=== PATIENT | male | born 1985 | race African-American/Black ===

== ENCOUNTER 2019-02-24 05:49 | Emergency (ER) | payer MEDICAID ==
[~2019-02-24] VITALS: Ht 177.8 cm; Wt 68.0 kg
--- NOTE | 2019-02-24 05:55 | NUR ---
ED Nurse Note: Pt was brought by JUAREZ and TERESA, due to Pt was ALOC and yelling on street. Called 911 by josé miguel. Pt is awake but confused and with violent behavior. Vital signs stable at this time, waiting for orders. Pt is not on custody at this time, so, TERESA left ED.
[2019-02-24] MEDS ORDERED: Haloperidol 5mg/ml Inj IM ONE (06:00)
[2019-02-24] MEDS ORDERED: LORazepam Inj 2mg/ml 1ml IM ONE (06:00)
[2019-02-24] MEDS ORDERED: DiphenhydrAMINE 50mg/ml Inj IM ONE (06:00)
--- NOTE | 2019-02-24 06:07 | Emergency Room Report ---
History of Present Illness General Chief Complaint: Altered Mental Status Source: Patient, EMS Present Illness HPI This is an approximately 26-year-old -[place] male brought in by EMS for altered mental status bizarre behavior. He was in the street yelling so someone called 911. Patient does not have an ID on him. He does not give a name. He is acting bizarrely. He has tangential thoughts. Denies any drug use. Denies any other complaints. Unable to get any other history from him. Allergies: Coded Allergies: No Known Allergies (Unverified , 02/24/19) Patient History Past Medical History: see triage record, old chart reviewed, unable to obtain Past Surgical History: unable to obtain Family History: unable to obtain Social History: unable to obtain Immunizations: other Reviewed Nursing Documentation: PMH: Agreed; PSxH: Agreed Nursing Documentation-PMH Past Medical History Deferred: Pt Cognitively Impaired Review of Systems All Other Systems: limited - Secondary to mental sta Physical Exam Vital Signs Date Time Temp Pulse Resp B/P (MAP) Pulse Ox O2 Delivery O2 Flow Rate FiO2 02/24/19 05:47 97.5 100 19 90 Room Air vitals with hypoxia. repeat POx 98% Sp02 EP Interpretation: reviewed, normal General Appearance: alert/responsive, no apparent distress, non-toxic Head: normocephalic, atraumatic Eyes: PERRL, EOMI, other - Patient agitated ENT: oropharynx normal Neck: supple/symm/no masses Respiratory: effort normal, no rhonchi, no wheezing Cardiovascular: no murmur, gallop, rub Gastrointestinal: non-tender, no mass, non-distended, no rebound/guarding, normal bowel sounds Musculoskeletal: gait & station normal Neurologic: oriented x3, sensory intact, motor strength/tone normal Psychiatric: other - Patient with tangential Thoughts. Appeared to have paranoia Skin: no rash, normal palpation Medical Decision Making Diagnostic Impression: Primary Impression: Psychosis Qualified Codes: F29 - Unspecified psychosis not due to a substance or known physiological condition ER Course Patient presents with acute psychosis. This may be secondary to underlying psychiatric problem and may be complicated by drugs or alcohol. Patient has to be sedated so we can get blood work and urine. I will sign patient out to Dr. Pak for final disposition. Last Vital Signs Date Time Temp Pulse Resp B/P (MAP) Pulse Ox O2 Delivery O2 Flow Rate FiO2 02/24/19 05:47 97.5 100 19 90 Room Air Status: improved Disposition: XFER TO PSYCH HOSP/UNIT Condition: Stable Jose C Ford MD February 24, 2019 06:07
--- NOTE | 2019-02-24 06:08 | NUR ---
ED Nurse Note: Blood and urine sample collected and sent to Lab.
--- NOTE | 2019-02-24 06:10 | NUR ---
ED Nurse Note: Meds given as ordered.
[2019-02-24 06:29] VITALS: BP 114/72
[2019-02-24 06:36] LABS: BASOPHILS % (AUTO) 0.5 % (0.0-2.0); EOSINOPHILS % (AUTO) 0.2 % (0.0-3.0); HEMATOCRIT 47.5 % (42.0-52.0); HEMOGLOBIN 15.8 G/DL (14.2-18.0); LYMPHOCYTES % (AUTO) 12.7 % (20.0-45.0); MEAN CORPUSCULAR VOLUME 89 FL (80-99); MONOCYTES % (AUTO) 6.1 % (1.0-10.0); NEUTROPHILS % (AUTO) 80.6 % (45.0-75.0); PLATELET COUNT 241 K/UL (150-450); RED BLOOD COUNT 5.36 M/UL (4.70-6.10); RED CELL DISTRIBUTION WIDTH 12.6 % (11.6-14.8); WHITE BLOOD COUNT 9.4 K/UL (4.8-10.8)
--- NOTE | 2019-02-24 06:38 | NUR ---
ED Nurse Note: Pt calmed down a little and resting in bed quietly at this time, will continue to monitor.
[2019-02-24 06:41] LABS: APPEARANCE,URINE CLEAR; BILIRUBIN, URINE NEGATIVE (NEGATIVE); GLUCOSE, URINE (UA) NEGATIVE (NEGATIVE); KETONES,URINE 3+ (NEGATIVE); LEUKOCYTE ESTERASE ,URINE 1+ (NEGATIVE); NITRITE,URINE NEGATIVE (NEGATIVE); PH,URINE 6 (4.5-8.0); PROTEIN,URINE 2+ (NEGATIVE); UROBILINOGEN,URINE 1 MG/DL (0.0-1.0)
[2019-02-24 06:45] LABS: ANION GAP 11 mmol/L (5-15); BLOOD UREA NITROGEN 17 mg/dL (7-18); CALCIUM 9.8 MG/DL (8.5-10.1); CARBON DIOXIDE 26 MMOL/L (21-32); CHLORIDE 100 MMOL/L (98-107); CREATININE 1.2 MG/DL (0.55-1.30); POTASSIUM 3.9 MMOL/L (3.5-5.1); SODIUM 137 MMOL/L (136-145)
[2019-02-24 06:50] LABS: ALANINE AMINOTRANSFERASE 41 U/L (12-78); ALBUMIN 4.9 G/DL (3.4-5.0); ALBUMIN/GLOBULIN RATIO 1.3 (1.0-2.7); ALKALINE PHOSPHATASE 86 U/L (46-116); ASPARTATE AMINO TRANSFERASE 23 U/L (15-37); BILIRUBIN,TOTAL 0.6 MG/DL (0.2-1.0)
[2019-02-24 06:50] LABS: COLOR,URINE YELLOW
--- NOTE | 2019-02-24 07:09 | NUR ---
HAND-OFF: Report given to Viviane/MABLE for continue care, Pt is sleeping at this time, VSS.
--- NOTE | 2019-02-24 07:48 | NUR ---
ED Nurse Note: refumed care at 0710 pt sleeping in left side lying position ivf complete d/c'd vss will monitor.
[2019-02-24 07:49] VITALS: BP 110/70
--- NOTE | 2019-02-24 09:02 | NUR ---
ED Nurse Note: pt sleeping bed in low locked position vss will monitor.
[2019-02-24 09:03] VITALS: BP 118/69
--- NOTE | 2019-02-24 10:23 | NUR ---
ED Nurse Note: pt sleeping no change pt refused vs will monitor.
[2019-02-24 12:15] VITALS: BP 115/69
--- NOTE | 2019-02-24 12:15 | NUR ---
ED Nurse Note: pt sleeping vss no new orders will monitor.
--- NOTE | 2019-02-24 16:00 | NUR ---
ED Nurse Note: pt woke up provided with food when asked for his real name and adress pt provided false info charge and ermd aware.
--- NOTE | 2019-02-24 17:05 | NUR ---
ED Nurse Note: pt offered food and drink pt refused sleeping on abd refused vss.
[2019-02-24 18:40] VITALS: BP 127/76
--- NOTE | 2019-02-24 19:15 | NUR ---
ED Nurse Note: pt given aci verbalized undertanding ambulated out of er with strong and steady gait.
== END 2019-02-24 18:40 | disposition home or self-care (01) ==
LOC: EDBD 05:49 → EMR 07:31 → MERGE 07:31 → EDBD 07:31 → EMR 18:40
DX: F29 Unspecified psychosis not due to a substance or known physiological condition (principal)
CPT/HCPCS: 36415; 80053; 80307; 80329; 81003; 85025; 96360; 96372; 99284; J1200; J1630